=== PATIENT | male | born 1990 ===

== ENCOUNTER 2018-08-15 12:53 | Emergency (ER) | payer BC ==
[~2018-08-15] VITALS: Ht 180.3 cm; Wt 83.0 kg
== END 2018-08-15 14:50 | disposition home or self-care (01) ==
LOC: ER 12:53
DX: S01.81XA Laceration without foreign body of other part of head, initial encounter (principal); S00.33XA Contusion of nose, initial encounter; S19.89XA Other specified injuries of other specified part of neck, initial encounter; W26.8XXA Contact with other sharp object(s), not elsewhere classified, initial encounter; Y93.11 Activity, swimming; Y92.828 Other wilderness area as the place of occurrence of the external cause; Y99.8 Other external cause status